=== PATIENT | female | born 1955 | race Caucasian/White ===

== ENCOUNTER → 2017-03-07 | Outpatient (CLI) | payer MEDICARE ==
[~2017-03-07] MED LIST: ADVAIR 250/501 EA INH; CIPRO500 MG PO; COUMADIN5 M2 PO; COUMADIN7.5 M1 PO; CRESTOR20 MG PO; ENALAPRIL20 MG PO; KCL PO; LASIX40 MG PO; MACROBID100 M1 PO; MOTRIN800 MG PO; NEXIUM40 MG PO; PREDNISONE10 MG PO; SYNTHROID,LEVO50 MCG PO; VENTOLIN 02.5 MG/3 M
== END ==
LOC: CT 09:37 → LAB 09:37 → CT 10:00
PROVIDERS: Radiology Diagnostic Radiology
DX: K76.0 Fatty (change of) liver, not elsewhere classified (principal); K57.30 Diverticulosis of large intestine without perforation or abscess without bleeding

== ENCOUNTER 2017-08-12 11:04 | Inpatient (IN) | payer MEDICARE ==
[~2017-08-12] VITALS: Ht 157.4 cm; Wt 120.0 kg
--- NOTE | ~2017-08-12 | PR ---
[place], [place] PROGRESS NOTE NAME: LOPEZ LUQUE UNIT #: [id number] ROOM: 407 DOCTOR: JESUSITA SANZ MD BIRTHDATE: [birth year] DOS: SUBJECTIVE: The patient is doing fine without any complaints. OBJECTIVE: VITAL SIGNS: Blood pressure is 159/72, pulse of 74, respirations 20, temperature 98.3. LUNGS: Clear. HEART: Regular. ABDOMEN: Obese, soft. EXTREMITIES: Without any edema. She is now able to ambulate from the bed to the hallway. DIAGNOSTIC STUDIES: MRI of the right knee showed complex tear of the posterior horn of the medial meniscus and degenerative changes. ASSESSMENT AND PLAN: 1. Acute pain of the knee with difficulty with ambulation. The patient's knee joint showed moderate knee effusion as well as acute tear of the posterior horn of the medial meniscus. This most likely is responsible for current problem. Dr. Trent has seen the patient and the patient will possibly receive a cortisone injection. 2. Adult failure to thrive. The patient to go back to home with visiting nurses and PT, OT, since she has not consented to a fdc placement. JESUSITA SANZ MD CM:JEFF [phone] JESUSITA SANZ MD 08/14/17 0923 interface
--- NOTE | ~2017-08-12 | WRIGHTHP ---
[place], [place] PATIENT HISTORY AND PHYSICAL EXAM NAME: LOPEZ LUQUE UNIT #: [id number] ROOM: 407 DOCTOR: JESUSITA SANZ MD BIRTHDATE: [birth year] DOS: HISTORY OF PRESENT ILLNESS: This patient states that she was walking up the steps, heard a pop in her right knee and she was unable to put any weight on her knee on ____, so she was brought to the emergency room where she was evaluated and was admitted. This morning, the patient continues to complain of right knee pain. She denies having any fever or chills. Does not have any chest pains or shortness of breath. Denies having any nausea and emesis. The patient has not had any falls or any other form of injury. PAST MEDICAL HISTORY: Significant for 1. History of DVT with long-term use of anticoagulants with lupus anticoagulant positivity. 2. Benign hypertension. 3. COPD with nicotine abuse. 5. Mixed hyperlipidemia. MEDICATIONS: Lasix 20 daily; enalapril 20 daily; levothyroxine 50 mcg daily; metformin 500 b.i.d.; omeprazole 20 daily; rosuvastatin 20 daily; warfarin 5 mg daily, Sunday, and Sunday, 8 mg rest of the days. SOCIAL HISTORY: Smoker of about 1 pack of cigarettes a day. Denies using any alcohol. Lives at home with her sister. She is mentally handicapped. PHYSICAL EXAMINATION: GENERAL: She is quite pleasant, morbidly obese. VITAL SIGNS: Graphic trend shows a pressure 142/70, pulse of 86, respirations 14. LUNGS: Diminished breath sounds. No wheezes, rales or rhonchi heard. HEART: Regular. ABDOMEN: Obese, soft, nontender. EXTREMITIES: Without any edema. Right knee, I did not notice any swelling or redness either anteriorly or in the popliteal area. We did try to get her out of bed as she was able to stand on her feet, but was unable to put much weight and walk. She was able to pivot with a lot of difficulties. ASSESSMENT AND PLAN: 1. Right knee pain, acute onset with difficulty ambulating. The patient will have an MRI of the right knee today along with a consultation with Dr. Trent. 2. Adult failure to thrive. PT/OT to be consulted and the patient may require short-term placement for a rehabilitation. 3. Benign hypertension, controlled. 4. Type 2 diabetes mellitus. Blood sugars to be checked twice daily. Continue metformin. [place], [place] PATIENT HISTORY AND PHYSICAL EXAM NAME: LOPEZ LUQUE UNIT #: [id number] ROOM: [facility] DOCTOR: JESUSITA SANZ MD BIRTHDATE: [birth year] JESUSITA SANZ MD CM:HISPHYS:PATIENT HISTORY AND PHYSICAL EXAMINATION [id number] JESUSITA SANZ MD 08/13/17 1217 interface
[2017-08-12 11:23] VITALS: BP 126/72
[2017-08-12 12:52] LABS: BASO % 0.2 % (0.0-1.0); HEMATOCRIT 33.1 % (37.0-47.0); HEMOGLOBIN 10.3 g/dl (12.0-16.0); LYMPH # 2.4 10*3/uL (1.3-4.4); LYMPH % 20.1 % (27.0-41.0); MEAN CELL VOLUME 89.2 fl (81.0-99.0); MEAN CORPUSCULAR HGB 27.8 pg (27.0-31.0); MEAN CORPUSCULAR HGB CONC 31.1 g/dl (33.0-37.0); MEAN PLATELET VOLUME 12.4 fl (9.6-12.3); MONO # 0.9 10*3/uL (0.1-1.0); MONO % 7.3 % (3.0-9.0); NEUT # 8.7 10*3/uL (2.3-7.9); NEUT % 71.4 % (47.0-73.0); PLATELET COUNT AUTOMATED 191 10*3/uL (130-400); RED BLOOD COUNT 3.71 10*6/uL (4.10-5.10); WHITE BLOOD COUNT 12.2 10*3/uL (4.8-10.8)
[2017-08-12 13:09] LABS: ALBUMIN 3.4 gm/dl (3.1-4.5); CREATININE 1.51 mg/dL (0.55-1.02); INTERNATIONAL NORM RATIO 2.7 (2.0-3.5); POTASSIUM 4.1 mmol/L (3.5-5.1); TOTAL PROTEIN 7.3 gm/dL (6.4-8.2)
--- NOTE | 2017-08-12 14:08 | NUR ---
THE PT IS RESTING ON THE BED. NO NEW C/O. FAMILY IS AT BEDSIDE
--- NOTE | 2017-08-12 15:03 | NUR ---
A NURSE HAS NOT BEEN ASSIGNED TO THE PATIENT ON THE FOURTH FLOOR YET
--- NOTE | 2017-08-12 15:09 | NUR ---
BOBY RETURNED THE CALL TO GET REPORT ON THE PATIENT
[2017-08-12 15:12] VITALS: BP 142/76
--- NOTE | 2017-08-12 15:28 | NUR ---
A 62, admitted to , under the services of JESUSITA Avelar MD with a diagnosis of INABILITY TO AMBULATE DUE TO RIGHT KNEE. Chief complaint is RIGHT KNEE PAIN FOR 1X MONTH. Patient arrived via wheel chair from ER. Monitor applied. Initial assessment completed. Vital signs taken and recorded. JESUSITA AVELAR MD notified of admission to the unit. Orders received. See assessment for past medical history, medications and allergies. Patient and/or family oriented to unit. [facility] visitation policy reviewed. Clothing/patient valuable form completed. BOBY ACOSTA
[2017-08-12] MEDS ORDERED: JANTOVEN4 M1 PO (15:40)
[2017-08-12] MEDS ORDERED: OMEPRAZOLE D/R20 MG PO (15:46)
[2017-08-12] MEDS ORDERED: METFORMIN500 MG PO (15:48)
[2017-08-12] MEDS ORDERED: JANTOVEN5 MG PO (15:52)
[2017-08-12 16:00] VITALS: BP 142/76
[2017-08-12 20:00] VITALS: BP 146/74; BP 149/66
[2017-08-12 21:16] LABS: BILIRUBIN NEGATIVE (NEGATIVE); BLOOD NEGATIVE (NEGATIVE); CLARITY SL CLOUDY (CLEAR); COLOR YELLOW (YELLOW); GLUCOSE NEGATIVE (NEGATIVE); KETONE NEGATIVE (NEGATIVE); LEUKO ESTERASE NEGATIVE (NEGATIVE); NITRITE NEGATIVE (NEGATIVE); SPECIFIC GRAVITY 1.015 (1.005-1.030); UROBILINOGEN 0.2 E.U./dl (0.2-1.0)
[2017-08-12 21:21] LABS: BACTERIA 2+; RBC 0-2 rbc/hpf (0-2)
--- NOTE | 2017-08-12 21:21 | NUR ---
PT REQUESTED MEDICATION FOR PAIN. PT RATES PAIN AT 5 OUT OF 10 AND IS LOCATED IN THE RIGHT KNEE. PAIN IS DESCRIBED DULL AND ACHING. NORCO GIVEN.
[2017-08-13] VITALS: BP 125/67
[2017-08-13 08:00] VITALS: BP 148/73
--- NOTE | 2017-08-13 08:30 | NUR ---
Advertising Analyst in to talk to patient. Patient states lives at HOME with HER SISTER. There are 10 steps in the home. Physician: DR HOLBROOK Pharmacy: [facility] health services: NONE REQUESTS [facility] NURSE AND PT UPON DC Patient's level of ADLs: MINIMAL ASSIST Patient has working utilities: YES DME: Follow-up physician's appointment after d/c: PREFERS TO MAKE HER OWN APPT Does patient want to access PORTAL?: Discharge plan HOME. SIMONE CARVER REFUSES SNF STAY
--- NOTE | 2017-08-13 11:11 | NUR ---
PT WOULD LIKE A WALKER. HAS NO PREFERANCE FOR SUPLLIER. WILL ASK DR SANZ FOR SCRIPT TOMORROW AM.
--- NOTE | 2017-08-13 11:23 | NUR ---
Physical therapy evaluation completed. RN and PT entered pt's room together. Patient sitting on BSC. Patient performed sit to stand with CGA. 3-4 steps to bed with CGA. Bed transfer with mod A of B LE's for sit to supine transfer. Max assist x 2 scooting upward in bed. Patient declined to walk at this time as well as to transfer into the chair. Patient requested to stay in bed as she was waiting to "get washed up." Patient is reporting less Right posterior knee pain. Patient is having medial hamstring muscle tenderness to palpation and mild discomfort with hamstring muscle contractions. Patient states she felt the pop in the knee that brought her to the ER in the medial hamstring muscle area. 3/10 R knee pain. No DORI in her home per pt. Bariatric walker needed. Patient agreed to attempt walking in subsequent phsyical therapy sessions. Patient educated on the importance of increasing mobility and safely changing positions often. Patient performed supine quad sets, heel slides and ankle pumps without increased symptoms. Patient to perform hourly. Physical therapy to continue with bed mobility, transfers, gait, ther ex/activity, safety, education. Patient would like to return home. Patient would benefit from home health physical therapy. Low complexity PT Bishop d/t time with chart reveiw and with patient. Thank you for this referral, [employer], PT
[2017-08-13 12:00] VITALS: BP 144/70
--- NOTE | 2017-08-13 14:35 | NUR ---
Received order for home health nursing and PT, patient requested OV. Faxed order and clincals to [facility] for possible D/C tomorrow.
[2017-08-13 16:00] VITALS: BP 138/76
[2017-08-13 20:00] VITALS: BP 146/73
--- NOTE | 2017-08-13 20:29 | NUR ---
PATIENT RESTING IN BED WITH NO NEEDS MADE AT THIS TIME. ASSISTED TO BEDSIDE COMMODE AND BACK TO BED WITH NO S/S OF DISTRESS. IV INFUSING WITHOUT DIFFICULTY. BED IN LOWEST POSITION, CALL LIGHT IN REACH
[2017-08-14] VITALS: BP 159/89
--- NOTE | 2017-08-14 01:26 | NUR ---
PATIENT RESTING IN BED WITH NO S/S OF DISTRESS. RESPS EASY AND REGULAR. BED IN LOWEST POSITION, CALL LIGHT IN REACH
--- NOTE | 2017-08-14 01:44 | NUR ---
24 HR chart check completed.
--- NOTE | 2017-08-14 05:06 | NUR ---
BG 107
[2017-08-14 08:00] VITALS: BP 159/72
--- NOTE | 2017-08-14 09:08 | NUR ---
SCRIPT FOR WALKER OBTAINED. ORDERED THROUGH [employer]. WILL BE DELIVERED TO PT ROOM TODAY. AWARE OF DC TODAY. SISTER IN ROOM. WALKER AND HOME HEALTH EXPLAINED TO SISTER NAD PT. DENIES FURTHER NEEDS. NURSE AWARE.
--- NOTE | 2017-08-14 11:23 | NUR ---
PHYSICAL THERAPY Mary seen this AM 1:1 and having no complaints for my, Pt sitting independent at bedside. Transfer sit/stand MIN A X 1, standing balance MIN A X 1. Then gait 20' X 1, MOD RESEARCH PROJECT MANAGER X 1, verbal cueing for gait safety, turns and with no LOB this visit, Pt has IV Pole and back sitting on the side of her bed independent, call light and phone. ALFREDO OTT [employer] M[employer] HAND.
--- NOTE | 2017-08-14 12:19 | NUR ---
[facility] Discharge instructions reviewed with patient/family. Patient receptive and verbalizes understanding. Follow-up care arranged. Written instructions given to patient/family. DERRELL TORO
--- NOTE | 2017-08-15 06:26 | NUR ---
PHYSICAL THERAPY CO-SIGN I approve of the Phyical Therapy notes written above. ALYCE CHAWLA PT
== END 2017-08-14 12:21 | disposition home health service (06) | DRG 563 ==
LOC: ED 11:04 → EDHOLD 14:46 → 4E 14:46
PROVIDERS: Physician Assistant; ADMIT Internal Medicine
DX: S83.241A Other tear of medial meniscus, current injury, right knee, initial encounter (principal); E11.9 Type 2 diabetes mellitus without complications; E78.2 Mixed hyperlipidemia; I10 Essential (primary) hypertension; M17.11 Unilateral primary osteoarthritis, right knee; F17.210 Nicotine dependence, cigarettes, uncomplicated; M25.461 Effusion, right knee; J44.9 Chronic obstructive pulmonary disease, unspecified; R62.7 Adult failure to thrive; Z86.718 Personal history of other venous thrombosis and embolism; Z79.01 Long term (current) use of anticoagulants; Z88.0 Allergy status to penicillin; Z98.51 Tubal ligation status; Z82.49 Family history of ischemic heart disease and other diseases of the circulatory system; Z83.3 Family history of diabetes mellitus; Z79.899 Other long term (current) drug therapy; X58.XXXA Exposure to other specified factors, initial encounter; Y93.01 Activity, walking, marching and hiking; Y92.098 Other place in other non-institutional residence as the place of occurrence of the external cause; Y99.8 Other external cause status

== ENCOUNTER 2018-03-01 07:23 | Emergency (ER) | payer MEDICARE ==
[~2018-03-01] VITALS: Ht 152.4 cm; Wt 113.4 kg
[~2018-03-01 07:23] MED LIST changes: +JANTOVEN4 M1 PO; +JANTOVEN5 MG PO; +METFORMIN HCL850 MG PO; +OMEPRAZOLE D/R20 MG PO
[2018-03-01] MEDS ORDERED: NORCO 5-325 TA1 EACH PO (09:05)
== END 2018-03-01 09:15 | disposition home or self-care (01) ==
LOC: ED 07:23
DX: S82.831A Other fracture of upper and lower end of right fibula, initial encounter for closed fracture (principal); R50.9 Fever, unspecified; R11.0 Nausea; Z88.0 Allergy status to penicillin; Z79.899 Other long term (current) drug therapy; Z79.02 Long term (current) use of antithrombotics/antiplatelets; W06.XXXA Fall from bed, initial encounter; Y93.89 Activity, other specified; Y92.89 Other specified places as the place of occurrence of the external cause; Y99.8 Other external cause status

== ENCOUNTER 2018-03-03 12:06 | Inpatient (IN) | payer MEDICARE ==
[2018-03-03] VITALS (7 sets, daily range): BP systolic 120–147; BP diastolic 49–84
[~2018-03-03] VITALS: Ht 160 cm; Wt 113.4 kg
--- NOTE | ~2018-03-03 | PR ---
[place], [place] PROGRESS NOTE NAME: LOPEZ LUQUE UNIT #: [id number] ROOM: [facility] DOCTOR: JESUSITA SANZ MD BIRTHDATE: [birth year] DOS: 03/07/2018 SUBJECTIVE: The patient is resting comfortably, does not have any complaints. OBJECTIVE: VITAL SIGNS: Blood pressure is 104/56, pulse of 92, respirations 20, temperature 98.5. LUNGS: Clear. HEART: Regular. ABDOMEN: Obese. EXTREMITIES: Without any edema. Intake, output for the last 24 hours, negative balance by 480 mL. LABORATORY DATA: No labs available. ASSESSMENT AND PLAN: 1. Acute kidney injury from sepsis, which is improving. 2. Acute pyelonephritis with urosepsis, on IV antibiotics. Repeat blood cultures will be drawn today. The patient's white cell count is slowly coming down and if blood cultures are negative today, the plan is to [facility] on p.o. antibiotics. JESUSITA SANZ MD CM:PNTRANS [phone] JESUSITA SANZ MD 03/07/18 0917 interface
--- NOTE | ~2018-03-03 | PR ---
[place], [place] PROGRESS NOTE NAME: LOPEZ LUQUE UNIT #: [id number] ROOM: [facility] DOCTOR: JESUSITA SANZ MD BIRTHDATE: [birth year] DOS: 03/06/2018 SUBJECTIVE: The patient is about the same, does not have any new complaints. OBJECTIVE: VITAL SIGNS: Graphic trend shows pressure 150/70, pulse of 92, respirations 22, temperature 98.1. LUNGS: Diminished breath sounds. HEART: Regular. ABDOMEN: Obese, soft. EXTREMITIES: Without any edema. LABORATORY DATA: White blood cell count is down to 11.9, hemoglobin 10.0, hematocrit 33.0, platelets 171. Protime 55.0 with an INR of 5.0. Glucose 99, BUN 58, creatinine 4.9. Sodium 138, potassium 5.0, chloride 109, bicarbonate 21. Blood culture shows gram-negative bacilli, most likely Escherichia coli. ASSESSMENT AND PLAN: 1. Urosepsis with acute pyelonephritis. The patient is on IV antibiotics, improving clinically. 2. Acute kidney injury from acute tubular necrosis, this is also definitely improving. We will continue slow IV hydration, decrease of fluid rate. 3. Hypoglycemia. Blood sugars are still in the low 100s. No oral anti-diabetics have been started. 4. Recent fall with fibular fracture and adult failure to thrive. The patient will go to a fci when more stable. JESUSITA SANZ MD CM:PNTRANS 0 4 JESUSITA SANZ MD 03/07/18921 interface
--- NOTE | ~2018-03-03 | DS ---
[place], [place] DISCHARGE SUMMARY [id number] UN[facility] #: [id number] ROOM: 511 DOCTOR: JEFFREY CAMARILLO MD BIRTHDATE: [birth year] DOS: 03/07/2018 DISCHARGE DIAGNOSES: 1. The patient with adult failure to thrive. 2. Deep venous thrombosis involving left peroneal and left tibial veins. The patient decided against inferior vena cava filter or surgical intervention in the past. 3. Greater than 70% right carotid artery stenosis. The patient decided against further treatment. 4. Generalized anxiety disorder. 5. Chronic atrial fibrillation with controlled heart rates. The patient's Coumadin was stopped prior to this admission. 6. Benign essential hypertension. 7. Parkinson's disease with advanced physical disability. 8. Major depression, recurrent. 9. Type 2 diabetes mellitus. 10. Mixed hyperlipidemia. 11. Urinary incontinence. 12. Urine retention. HOSPITAL COURSE: The patient admitted with decreased appetite, generalized weakness, adult failure to thrive and inability to get up from floor where he was sleeping. The patient was unable to get up in the morning because of severe weakness. The patient was admitted for placement to fci for rehabilitation. The patient was kept on physical therapy during his stay at the hospital. The patient was found to be somewhat dehydrated and was given normal saline, which improved his acute kidney failure related to dehydration to baseline. The patient is feeling somewhat better. Parkinson's disease with advanced disability, treated with Sinemet. For poor appetite, the patient was given Periactin for appetite stimulation. Type 2 diabetes mellitus. Blood sugars were monitored and treated and metformin stopped because of his kidney function. Chronic kidney disease with acute kidney failure related to dehydration, improved with hydration with normal saline. Mixed hyperlipidemia, treated with lovastatin. Benign essential hypertension, treated and controlled. Chronic atrial fibrillation with controlled heart rates. The patient's Coumadin was apparently stopped by some physician prior to his admission, so he was kept off the medication. DISCHARGE MANAGEMENT: Cyproheptadine 8 mg 3 times a day before meals, glyburide 1.25 mg daily, no concentrated sweet diet, paroxetine which is Paxil 30 mg a day, finasteride 5 mg a day, Sinemet 25/250 mg q.i.d., omeprazole 40 mg a day, [place], [place] DISCHARGE SUMMARY NAME: LOPEZ LUQUE UNIT #: [id number] ROOM: 511 DOCTOR: JEFFREY CAMARILLO MD BIRTHDATE: [birth year] metoprolol 25 mg b.i.d., lisinopril 5 mg at bedtime, Coreg 3.125 mg b.i.d., Florinef 0.1 mg b.i.d. JEFFREY CAMARILLO MD CM:CHAVA [phone] JEFFREY CAMARILLO MD 03/07/18 1819 interface
--- NOTE | ~2018-03-03 | PR ---
[place], [place] PROGRESS NOTE NAME: LPOEZ LUQUE UNIT #: [id number] ROOM: [facility] DOCTOR: JESUSITA SANZ MD BIRTHDATE: [birth year] CM:PNTAYLOR 0 4 JESUSITA SANZ MD 03/07/18 0919 interface
--- NOTE | ~2018-03-03 | PR ---
[place], [place] PROGRESS NOTE NAME: LOPEZ LUQUE UNIT #: [id number] ROOM: [facility] DOCTOR: JESUSITA SANZ MD BIRTHDATE: [birth year] DOS: 03/05/2018 SUBJECTIVE: The patient looks better than yesterday. Does not have any new complaints. OBJECTIVE: VITAL SIGNS: Graphic trend shows pressure of 116/62, pulse of 94, respirations 24, temperature 99.2, T-max of 100.4. LUNGS: Clear. HEART: Regular. ABDOMEN: Obese. EXTREMITIES: Without any edema. LABORATORY DATA: Urine culture shows E. coli. Blood culture, Gram-negative, most likely E. coli. White cell count is 12.7, hemoglobin 9.2, hematocrit 29.2, platelet 141. BMP: Glucose 152, BUN 54, creatinine 5.36, sodium 135, potassium 4.5, chloride 103. MRSA of the nares was negative. ASSESSMENT AND PLAN: 1. Acute renal failure, possibly from a combination ATN and sepsis. Kidney functions are not improving very well. Creatinine still in the 5. We will continue IV fluids. 2. Urosepsis with acute pyelonephritis. Continue IV antibiotics. Fevers are coming down. White cell count is coming down. 3. Adult failure to thrive. PT/OT to start ambulating her. Appreciate Dr. Trent's input. The patient to go to a rehab when stable medically. 4. Type 2 diabetes mellitus. Blood sugars still on the low side even on the D10 that she is on. JESUSITA SANZ MD CM:PNTRANS [phone] JESUSITA SANZ MD 03/07/18 0918 interface
--- NOTE | ~2018-03-03 | WRIGHTHP ---
[place], [place] PATIENT HISTORY AND PHYSICAL EXAM NAME: LOPEZ LUQUE UNIT #: [id number] ROOM: [facility] DOCTOR: JESUSITA SANZ MD BIRTHDATE: [birth year] DOS: 03/03/2018 HISTORY OF PRESENT ILLNESS: This patient is very well known to us 62-year-old was brought from home after being found unresponsive at home. The family members tried to wake her up. They thought that she was just sleeping, but finally realized there was something wrong, so called the EMS. They checked the blood sugar and was 26, for which she was brought to the Emergency Room. She was initially not responsive, but after an IV was started and the blood sugar improved, she was starting to respond. She had been to the hospital 3 days prior to this admission after a fall at home from bed and was diagnosed with a fibular fracture and she was given a knee immobilizer, but this was too long and she was unable to wear it because of extreme tightness in her leg. She denies having any chest pains or palpitations, not have any abdominal pain, nausea, any emesis. Does not have any fever or chills. Does not complain of any urinary symptoms. PAST MEDICAL HISTORY: Significant for; 1. Type 2 diabetes mellitus. 2. Benign hypertension. 3. COPD with continued nicotine abuse. 4. Mixed hyperlipidemia. 5. Lupus anticoagulant positive with history of DVT, on long-term use of anticoagulants. MEDICATIONS: Lasix, enalapril, metformin, levothyroxine, omeprazole, Crestor, warfarin. Her last kidney function in January was absolutely within normal limits. PHYSICAL EXAMINATION: GENERAL: She is awake and alert. Face looks puffy. VITAL SIGNS: Pressure is 116/62, pulse of 94, respirations 24, temperature 99.2 with a T-max of 100.6. LUNGS: Diminished breath sounds. Scattered wheezes heard bilaterally. HEART: Regular. ABDOMEN: Obese. EXTREMITIES: Without any edema. Urine culture is positive. Identification is not available. Blood cultures positive. CT of the abdomen and pelvis shows pyelonephritis. ASSESSMENT AND PLAN: 1. Acute pyelonephritis with urosepsis. The patient is placed on intravenous antibiotics. 2. Hypoglycemia, severe with history of type 2 diabetes mellitus. Patient's blood sugars had not been controlled in the past. She was advised to discontinue the metformin a few days ago because of continued diarrhea and she continued to remain on it. The acute renal failure could be caused by the metformin urosepsis from acute tubular necrosis. 3. Acute kidney injury. The patient had normal kidney functions just 2 months [place], [place] PATIENT HISTORY AND PHYSICAL EXAM NAME: LOPEZ LUQUE UNIT #: [id number] ROOM: [facility] DOCTOR: JESUSITA SANZ MD BIRTHDATE: [birth year] ago, could be from the pyelonephritis and urosepsis as well as acute tubular necrosis. Again, intravenous fluids have been ordered and continued. 4. Fibular fracture with adult failure to thrive. PT/OT will be consulted. Social service also has been consulted for possibility of placement. JESUSITA SANZ MD CM:HISPHYS:PATIENT HISTORY AND PHYSICAL EXAMINATION 9 [phone] JESUSITA SANZ MD 03/05/18 0964 interface
[~2018-03-03 12:06] MED LIST changes: +NORCO 5-325 TA1 EACH PO
[2018-03-03 12:36] LABS: HEMATOCRIT 37.3 % (37.0-47.0); HEMOGLOBIN 11.5 g/dl (12.0-16.0); MEAN CELL VOLUME 88.8 fl (81.0-99.0); MEAN CORPUSCULAR HGB 27.4 pg (27.0-31.0); MEAN CORPUSCULAR HGB CONC 30.8 g/dl (33.0-37.0); MEAN PLATELET VOLUME 12.6 fl (9.6-12.3); PLATELET COUNT AUTOMATED 147 10*3/uL (130-400); RED CELL DISTRI WIDTH 16.5 % (0-14.5)
[2018-03-03 12:46] LABS: ACT PARTIAL THROMBO TIME 46.3 SECONDS (20.8-31.5); INTERNATIONAL NORM RATIO 2.7 (2.0-3.5)
[2018-03-03 12:53] LABS: ALBUMIN 2.5 gm/dl (3.1-4.5); ATYPICAL LYMPHS 1 % (0-0); CREATININE 5.96 mg/dL (0.55-1.02); POTASSIUM 4.8 mmol/L (3.5-5.1); TOTAL CELLS COUNTED 100 #CELLS; TOTAL PROTEIN 7.6 gm/dL (6.4-8.2)
[2018-03-03 12:54] LABS: BURR CELLS FEW; PLATELET SUFFICIENCY NORMAL (NORMAL)
[2018-03-03 12:57] LABS: BILIRUBIN NEGATIVE (NEGATIVE); BLOOD 3+ (NEGATIVE); CLARITY TURBID (CLEAR); COLOR YELLOW (YELLOW); GLUCOSE NEGATIVE (NEGATIVE); KETONE NEGATIVE (NEGATIVE)
[2018-03-03 12:58] LABS: LEUKO ESTERASE 2+ (NEGATIVE); NITRITE NEGATIVE (NEGATIVE); UROBILINOGEN 0.2 E.U./dl (0.2-1.0)
[2018-03-03 13:01] LABS: TROPONIN I 0.053 ng/ml (<0.045)
[2018-03-03 13:11] LABS: ABG HCO3 18.4 mmol/l (22-26); ABG O2 SATURATION 96.5 % (95-97); ARTERIAL BLOOD GAS PCO2 36.1 mmHg (35-45); ARTERIAL BLOOD GAS PH 7.325 (7.35-7.45)
[2018-03-03 13:12] LABS: ABG BASE EXCESS -6.5 mmol/L (-2.0-2.0)
[2018-03-03 13:14] LABS: BACTERIA 4+; WBC TNTC wbc/hpf (0-5)
[2018-03-03] MEDS ORDERED: GLIPIZIDE10 M2 PO (14:07)
[2018-03-03] MEDS ORDERED: K-TAB10 MEQ PO (14:08)
[2018-03-04 04:23] VITALS: BP 105/63
[2018-03-04 06:05] LABS: HEMATOCRIT 31.8 % (37.0-47.0); MEAN CELL VOLUME 87.4 fl (81.0-99.0); MEAN CORPUSCULAR HGB 27.5 pg (27.0-31.0); MEAN CORPUSCULAR HGB CONC 31.4 g/dl (33.0-37.0); PLATELET COUNT AUTOMATED 135 10*3/uL (130-400); RED BLOOD COUNT 3.64 10*6/uL (4.10-5.10); RED CELL DISTRI WIDTH 16.1 % (0-14.5); WHITE BLOOD COUNT 12.1 10*3/uL (4.8-10.8)
[2018-03-04 06:24] LABS: ALBUMIN 2.1 gm/dl (3.1-4.5); CREATININE 5.86 mg/dL (0.55-1.02); POTASSIUM 4.3 mmol/L (3.5-5.1); TOTAL PROTEIN 6.8 gm/dL (6.4-8.2)
[2018-03-04 07:09] LABS: PLATELET SUFFICIENCY NORMAL (NORMAL); TOTAL CELLS COUNTED 100 #CELLS
[2018-03-04 08:00] VITALS: BP 118/61
[2018-03-04 10:13] LABS: POTASSIUM 4.4 mmol/L (3.5-5.1)
[2018-03-04 10:38] LABS: CREATININE 5.92 mg/dL (0.55-1.02)
[2018-03-04 12:00] VITALS: BP 128/77
[2018-03-04 16:00] VITALS: BP 142/69
[2018-03-04 20:00] VITALS: BP 130/71
[2018-03-05] VITALS (7 sets, daily range): BP systolic 116–142; BP diastolic 51–80
[2018-03-05 06:03] LABS: BASO % 0.2 % (0.0-1.0); EOS # 0.1 10*3/uL (0.0-0.4); EOS % 0.9 % (1.0-4.0); HEMATOCRIT 29.2 % (37.0-47.0); HEMOGLOBIN 9.2 g/dl (12.0-16.0); LYMPH # 1.1 10*3/uL (1.3-4.4); LYMPH % 8.6 % (27.0-41.0); MEAN CELL VOLUME 85.9 fl (81.0-99.0); MEAN CORPUSCULAR HGB 27.1 pg (27.0-31.0); MEAN CORPUSCULAR HGB CONC 31.5 g/dl (33.0-37.0); MEAN PLATELET VOLUME 12.5 fl (9.6-12.3); MONO # 0.6 10*3/uL (0.1-1.0); NEUT # 10.8 10*3/uL (2.3-7.9); NEUT % 84.4 % (47.0-73.0); PLATELET COUNT AUTOMATED 141 10*3/uL (130-400); RED CELL DISTRI WIDTH 16.3 % (0-14.5); WHITE BLOOD COUNT 12.7 10*3/uL (4.8-10.8)
[2018-03-05 08:11] LABS: CREATININE 5.36 mg/dL (0.55-1.02); POTASSIUM 4.5 mmol/L (3.5-5.1)
[2018-03-06] VITALS: BP 153/78
[2018-03-06 04:00] VITALS: BP 150/70
[2018-03-06 06:06] LABS: CREATININE 4.59 mg/dL (0.55-1.02)
[2018-03-06 06:34] LABS: BASO % 0.3 % (0.0-1.0); EOS # 0.1 10*3/uL (0.0-0.4); EOS % 1.1 % (1.0-4.0); LYMPH # 1.4 10*3/uL (1.3-4.4); LYMPH % 11.4 % (27.0-41.0); MEAN CORPUSCULAR HGB 27.1 pg (27.0-31.0); MEAN CORPUSCULAR HGB CONC 30.3 g/dl (33.0-37.0); MEAN PLATELET VOLUME 12.6 fl (9.6-12.3); MONO % 8.4 % (3.0-9.0); NEUT # 9.2 10*3/uL (2.3-7.9); NEUT % 77.1 % (47.0-73.0); PLATELET COUNT AUTOMATED 171 10*3/uL (130-400); RED BLOOD COUNT 3.69 10*6/uL (4.10-5.10); RED CELL DISTRI WIDTH 16.9 % (0-14.5); WHITE BLOOD COUNT 11.9 10*3/uL (4.8-10.8)
[2018-03-06 06:47] LABS: MEAN CELL VOLUME 89.4 fl (81.0-99.0)
[2018-03-06 08:00] VITALS: BP 134/73
[2018-03-06 12:00] VITALS: BP 130/70
[2018-03-06 16:00] VITALS: BP 134/70
[2018-03-06 20:00] VITALS: BP 116/69
[2018-03-07] VITALS: BP 98/56
[2018-03-07 04:00] VITALS: BP 105/66
[2018-03-07] MEDS ORDERED: CEFUROXIME AXE250 MG PO (07:35)
[2018-03-07 07:39] LABS: CREATININE 3.41 mg/dL (0.55-1.02)
[2018-03-07 07:40] LABS: INTERNATIONAL NORM RATIO 7.3 (2.0-3.5)
[2018-03-07 08:00] VITALS: BP 121/69
[2018-03-07 12:00] VITALS: BP 141/75
[2018-03-07 16:00] VITALS: BP 152/97
[2018-03-07 20:00] VITALS: BP 157/87
[2018-03-08] VITALS: BP 153/76
[2018-03-08 08:00] VITALS: BP 162/98
[2018-03-08 09:42] LABS: INTERNATIONAL NORM RATIO 1.3 (2.0-3.5)
[2018-03-08] MEDS ORDERED: LOPRESSOR25 MG PO (10:04)
== END 2018-03-08 11:00 | disposition other institution (70) | DRG 871 ==
LOC: ED 12:06 → EDHOLD 13:17 → ICCU 13:17 → 5E 13:17 → ICCU 13:34 → 5E 03-07 12:36
PROVIDERS: Emergency Medicine; Internal Medicine
PROC: 02H633Z Insertion of Infusion Device into Right Atrium, Percutaneous Approach (ICD-10-PCS; principal; 2018-03-03)
DX: A41.9 Sepsis, unspecified organism (principal); N17.0 Acute kidney failure with tubular necrosis; D68.62 Lupus anticoagulant syndrome; E11.649 Type 2 diabetes mellitus with hypoglycemia without coma; G20 Parkinson's disease; F33.9 Major depressive disorder, recurrent, unspecified; I48.2 Chronic atrial fibrillation; E86.0 Dehydration; N10 Acute pyelonephritis; F41.1 Generalized anxiety disorder; I12.9 Hypertensive chronic kidney disease with stage 1 through stage 4 chronic kidney disease, or unspecified chronic kidney disease; N18.9 Chronic kidney disease, unspecified; E78.2 Mixed hyperlipidemia; J44.9 Chronic obstructive pulmonary disease, unspecified; R62.7 Adult failure to thrive; R26.2 Difficulty in walking, not elsewhere classified; R65.20 Severe sepsis without septic shock; Z88.0 Allergy status to penicillin; Z79.84 Long term (current) use of oral hypoglycemic drugs; Z79.01 Long term (current) use of anticoagulants; Z79.899 Other long term (current) drug therapy; Z98.51 Tubal ligation status; Z95.5 Presence of coronary angioplasty implant and graft; Z87.81 Personal history of (healed) traumatic fracture; Z86.718 Personal history of other venous thrombosis and embolism; Z83.3 Family history of diabetes mellitus; Z82.49 Family history of ischemic heart disease and other diseases of the circulatory system

== ENCOUNTER 2020-06-25 20:27 | Inpatient (IN) | payer OTHER ==
[~2020-06-25] VITALS: Ht 154.9 cm; Wt 108.5 kg
[~2020-06-25 20:27] MED LIST changes: +CEFUROXIME AXE250 MG PO; +GLIPIZIDE10 M2 PO; +K-TAB10 MEQ PO; +LOPRESSOR25 MG PO
[2020-06-25 20:30] VITALS: BP 154/84
[2020-06-25 21:04] LABS: HEMATOCRIT 40.3 % (37.0-47.0); MEAN CELL VOLUME 86.9 fl (81.0-99.0); MEAN CORPUSCULAR HGB 25.6 pg (27.0-31.0); MEAN CORPUSCULAR HGB CONC 29.5 g/dl (33.0-37.0); MEAN PLATELET VOLUME 12.6 fl (9.6-12.3); PLATELET COUNT AUTOMATED 189 10*3/uL (130-400); RED BLOOD COUNT 4.64 10*6/uL (4.10-5.10); RED CELL DISTRI WIDTH 15.9 % (0-14.5); WHITE BLOOD COUNT 16.7 10*3/uL (4.8-10.8)
[2020-06-25 21:19] LABS: ALBUMIN 3.4 gm/dl (3.1-4.5); CREATININE 1.77 mg/dL (0.55-1.02); POTASSIUM 3.7 mmol/L (3.5-5.1); TOTAL PROTEIN 8.1 gm/dL (6.4-8.2)
--- NOTE | 2020-06-25 21:27 | NUR ---
Family updated on pt status and ok for pt family to come back per .
--- NOTE | 2020-06-25 21:34 | NUR ---
Pt has some periods of confusion noted.Pt states she is unsure of date or year and per pt this is her normal at this time.Per sister pt has mrdd.
[2020-06-25 21:43] VITALS: BP 158/86
[2020-06-25 21:43] LABS: PLATELET SUFFICIENCY NORMAL (NORMAL); TOTAL CELLS COUNTED 100 #CELLS
--- NOTE | 2020-06-25 21:59 | NUR ---
Pt nausea is better at this time and pt is drinking water at this time.
--- NOTE | 2020-06-25 22:00 | NUR ---
Sister Quita at bedside at this time.
--- NOTE | 2020-06-25 22:14 | NUR ---
Sister in at bedside.Sister and pt stated they did not want wound pictures taken.Per pt she has had large skin tag since .Area slightly open at this time with no drainage.Rash also noted in groin at this time and jess care given after pt voided.Pt voided small amount of yellow cloudy urine at this time.
[2020-06-25 22:20] LABS: BILIRUBIN Negative (Negative); BLOOD 3+ (Negative); CLARITY Cloudy (Clear); COLOR Yellow (Yellow); GLUCOSE Negative (Negative); KETONE Trace (Negative); LEUKO ESTERASE 3+ (Negative); NITRITE Negative (Negative); SPECIFIC GRAVITY 1.015 (1.001-1.030)
[2020-06-25 22:29] LABS: EPITHELIAL CELLS 31-40
[2020-06-25 22:30] LABS: BACTERIA 2+; RBC 21-30 rbc/hpf (0-2); WBC 41-50 wbc/hpf (0-5)
[2020-06-25 23:15] VITALS: BP 148/82
--- NOTE | 2020-06-25 23:28 | NUR ---
Pt turned and repostioned in bed at this time.Rash still present on groin and also noted on left upp thigh and lateral area.Pt is dry at this time and sister still at bedside at this time.
--- NOTE | 2020-06-25 23:29 | NUR ---
Trace edema noted to b/l lower legs at this time.
[2020-06-25 23:51] VITALS: BP 150/81
[2020-06-26] VITALS: BP 163/78
--- NOTE | 2020-06-26 | NUR ---
Time: 0000 A 65 year old F admitted to under services of JESUSITA AVELAR MD. Pt. arrived via stretcher from ER. Chief complaint: NAUSEA & VOMITING AT HOME THAT STARTED AROUND 5 P.M.. MAXWELL QUEZADA
[2020-06-26 05:59] LABS: BASO % 0.2 % (0.0-1.0); EOS % 0.1 % (1.0-4.0); HEMATOCRIT 35.8 % (37.0-47.0); LYMPH # 1.1 10*3/uL (1.3-4.4); LYMPH % 9.9 % (27.0-41.0); MEAN CELL VOLUME 87.7 fl (81.0-99.0); MEAN CORPUSCULAR HGB 26.5 pg (27.0-31.0); MEAN CORPUSCULAR HGB CONC 30.2 g/dl (33.0-37.0); MEAN PLATELET VOLUME 12.7 fl (9.6-12.3); MONO # 0.6 10*3/uL (0.1-1.0); NEUT # 9.5 10*3/uL (2.3-7.9); NEUT % 84.5 % (47.0-73.0); PLATELET COUNT AUTOMATED 173 10*3/uL (130-400); RED BLOOD COUNT 4.08 10*6/uL (4.10-5.10); WHITE BLOOD COUNT 11.2 10*3/uL (4.8-10.8)
[2020-06-26 06:17] LABS: CREATININE 1.97 mg/dL (0.55-1.02); POTASSIUM 3.7 mmol/L (3.5-5.1)
--- NOTE | 2020-06-26 06:21 | NUR ---
CALLED DR. SANZ EARLIER IN SHIFT FOR ADMISSION ORDERS. UNABLE TO VERIFY HOME MEDICATIONS DUE TO PATIENT NOT KNOWING WHAT MEDICATIONS SHE TAKES. WILL PASS ON TO NEXT SHIFT TO CALL [facility].
[2020-06-26 06:22] LABS: INTERNATIONAL NORM RATIO 2.1 (2.0-3.5)
[2020-06-26 08:00] VITALS: BP 151/86
[2020-06-26] MEDS ORDERED: LEVOTHYROXINE75 MCG PO (09:44)
[2020-06-26] MEDS ORDERED: BUSPIRONE HCL10 MG PO (09:45)
--- NOTE | 2020-06-26 09:45 | NUR ---
CALLED [facility] TO UPDATE MEDICATION LIST. MEDICATION LIST UPDATED, DR SANZ IS AWARE.
[2020-06-26] MEDS ORDERED: FUROSEMIDE20 M1 PO (09:46)
[2020-06-26] MEDS ORDERED: PAROXETINE HCL30 MG PO (09:46)
[2020-06-26] MEDS ORDERED: JANTOVEN6 M1 PO (09:46)
[2020-06-26] MEDS ORDERED: ATORVASTATIN CA40 M1 PO (09:47)
--- NOTE | 2020-06-26 09:55 | NUR ---
Morning Babysitter in to talk to patient in her Room Patient states that she lives at home with her Sister Leesa and Plans to return home at discharge. There are 5 steps in the home. Physician: Dr. Eliane Saucedo Pharmacy: [facility] services: None at this time Patient's level of ADLs: Independent Patient has working utilities: Yes DME: Pt. uses a Walker to Ambulate Follow-up physician's appointment after d/c: Pt. prefers to make her own follow up appointments at discharge. Does patient want to access PORTAL?: Not Interested Discharge plan. Pt. states that she wants to return home to live with her Sister Leesa, that she is independent in her own care when feeling well and requires no assistance. Pt. declines SNF or Home Health at this time. TRAN AMBRIZ LPN, Morning Babysitter
[2020-06-26 12:00] VITALS: BP 157/93
[2020-06-26 16:00] VITALS: BP 150/94
[2020-06-26 20:00] VITALS: BP 144/69
--- NOTE | 2020-06-26 20:20 | NUR ---
RESTING IN BED WITH HOB SLIGHTLY ELEVATED. PLACED 02 BACK IN PT'S NOSE. IV FLUIDS INFUSING INTO LEFT ANTECUBITAL WITHOUT DIFFICULTY; SITE ASYMPTOMATIC. NO DISTRESS NOTED; CALL LIGHT WITHIN REACH. BED ALARM ON.
[2020-06-27] VITALS: BP 157/70
--- NOTE | 2020-06-27 06:00 | NUR ---
TOOK MEDICATION WITHOUT DIFFICULTY. DR. SANZ HERE TO SEE PT. 02 INTACT. CALL LIGHT WITHIN REACH. BED ALARM ON.
--- NOTE | 2020-06-27 06:15 | NUR ---
IV FLUIDS DISCONTINUED PER M.D. ORDERS.
--- NOTE | 2020-06-27 07:25 | NUR ---
PODIATRY CONSULTED TO TRIM PATIENT'S TOENAILS. SPOKE TO DR. FITZPATRICK.
[2020-06-27 08:00] VITALS: BP 151/66
[2020-06-27 12:00] VITALS: BP 138/78
--- NOTE | 2020-06-27 13:30 | NUR ---
ALERT TO PERSON AND PLACE. PLACED UP INTO CHAIR WITH ASSISTANCE TIMES ONE. INCONTINENT OF URINE. TEMP 99
[2020-06-27 16:00] VITALS: BP 144/91
--- NOTE | 2020-06-27 20:00 | NUR ---
PT SEEN AND ASSESSED. PT DENIES ANY C/O AT THIS TIME.
[2020-06-28] VITALS: BP 163/86
--- NOTE | 2020-06-28 02:15 | NUR ---
24 HR chart check completed.
[2020-06-28 06:20] LABS: BASO % 0.3 % (0.0-1.0); EOS # 0.2 10*3/uL (0.0-0.4); EOS % 2.2 % (1.0-4.0); HEMATOCRIT 33.7 % (37.0-47.0); LYMPH # 1.5 10*3/uL (1.3-4.4); LYMPH % 21.9 % (27.0-41.0); MEAN CORPUSCULAR HGB 25.8 pg (27.0-31.0); MEAN CORPUSCULAR HGB CONC 29.4 g/dl (33.0-37.0); MEAN PLATELET VOLUME 12.9 fl (9.6-12.3); MONO # 0.6 10*3/uL (0.1-1.0); MONO % 8.6 % (3.0-9.0); NEUT # 4.5 10*3/uL (2.3-7.9); NEUT % 66.9 % (47.0-73.0); PLATELET COUNT AUTOMATED 158 10*3/uL (130-400); RED BLOOD COUNT 3.83 10*6/uL (4.10-5.10); RED CELL DISTRI WIDTH 16.3 % (0-14.5); WHITE BLOOD COUNT 6.8 10*3/uL (4.8-10.8)
[2020-06-28 06:29] LABS: CREATININE 1.57 mg/dL (0.55-1.02); POTASSIUM 3.7 mmol/L (3.5-5.1)
[2020-06-28 08:00] VITALS: BP 161/79
--- NOTE | 2020-06-28 08:02 | NUR ---
PHYSICAL THERAPY Screen received pt admitted with c/o nausea abdominal pain and possible UTI, please consult PT if pt has a decline in functional status below baseline thank you Vani Meraz PT
[2020-06-28] MEDS ORDERED: CEFUROXIME AXE250 MG PO (08:59)
--- NOTE | 2020-06-28 12:29 | NUR ---
Discharge instructions reviewed with patient/family. Patient receptive and verbalizes understanding. Follow-up care arranged. Written instructions given to patient/family. PATIENT HAS LEFT THE FLOOR BY WHEELCHAIR. SYL MALDONADO
== END 2020-06-28 12:29 | disposition home or self-care (01) | DRG 690 ==
LOC: ED 20:27 → 4E 23:03 → EDHOLD 23:03 → 4E 23:52
PROVIDERS: Internal Medicine; ADMIT Internal Medicine; ATTEND Internal Medicine
DX: N30.01 Acute cystitis with hematuria (principal); I48.21 Permanent atrial fibrillation; E87.2 Acidosis; D68.51 Activated protein C resistance; D68.59 Other primary thrombophilia; Z68.42 Body mass index [BMI] 45.0-49.9, adult; R62.7 Adult failure to thrive; F78 Other intellectual disabilities; I12.9 Hypertensive chronic kidney disease with stage 1 through stage 4 chronic kidney disease, or unspecified chronic kidney disease; Z79.01 Long term (current) use of anticoagulants; Z86.718 Personal history of other venous thrombosis and embolism; F41.1 Generalized anxiety disorder; Z88.0 Allergy status to penicillin; N18.9 Chronic kidney disease, unspecified

== ENCOUNTER → 2020-07-05 | Outpatient (CLI) | payer OTHER ==
[~2020-07-05] MED LIST changes: +ATORVASTATIN CA40 M1 PO; +BUSPIRONE HCL10 MG PO; +FUROSEMIDE20 M1 PO; +JANTOVEN6 M1 PO; +LEVOTHYROXINE75 MCG PO; +PAROXETINE HCL30 MG PO
[2020-07-05 10:02] LABS: BASO % 0.3 % (0.0-1.0); EOS # 0.2 10*3/uL (0.0-0.4); EOS % 2.5 % (1.0-4.0); HEMATOCRIT 35.5 % (37.0-47.0); LYMPH # 1.7 10*3/uL (1.3-4.4); LYMPH % 24.1 % (27.0-41.0); MEAN CELL VOLUME 87.4 fl (81.0-99.0); MEAN CORPUSCULAR HGB 25.4 pg (27.0-31.0); MEAN PLATELET VOLUME 12.4 fl (9.6-12.3); MONO # 0.3 10*3/uL (0.1-1.0); MONO % 4.8 % (3.0-9.0); NEUT # 4.7 10*3/uL (2.3-7.9); NEUT % 67.9 % (47.0-73.0); PLATELET COUNT AUTOMATED 220 10*3/uL (130-400); RED BLOOD COUNT 4.06 10*6/uL (4.10-5.10); WHITE BLOOD COUNT 6.9 10*3/uL (4.8-10.8)
[2020-07-05 10:19] LABS: CREATININE 1.68 mg/dL (0.55-1.02); FREE T4 0.94 ng/dl (0.76-1.46); POTASSIUM 3.8 mmol/L (3.5-5.1); TOTAL PROTEIN 7.5 gm/dL (6.4-8.2)
[2020-07-05 10:27] LABS: THYROID STIM HORMONE (HS) 3.5 uIU/ml (0.358-4.75)
[2020-07-05 11:08] LABS: VITAMIN D, 25-HYDROXY 33.6 ng/mL (30-100)
== END | disposition home or self-care (01) ==
LOC: LAB 09:33
PROVIDERS: ATTEND Internal Medicine
DX: I12.9 Hypertensive chronic kidney disease with stage 1 through stage 4 chronic kidney disease, or unspecified chronic kidney disease (principal); N18.30 Chronic kidney disease, stage 3 unspecified; E78.3 Hyperchylomicronemia; E55.9 Vitamin D deficiency, unspecified; D51.0 Vitamin B12 deficiency anemia due to intrinsic factor deficiency; Z00.00 Encounter for general adult medical examination without abnormal findings

== ENCOUNTER → 2021-03-14 | Outpatient (CLI) | payer OTHER ==
[2021-03-14 11:13] LABS: BASO % 0.4 % (0.0-1.0); EOS # 0.1 10*3/uL (0.0-0.4); EOS % 1.5 % (1.0-4.0); HEMATOCRIT 36.6 % (37.0-47.0); LYMPH # 1.6 10*3/uL (1.3-4.4); LYMPH % 19.7 % (27.0-41.0); MEAN CELL VOLUME 89.1 fl (81.0-99.0); MEAN CORPUSCULAR HGB 26.5 pg (27.0-31.0); MEAN CORPUSCULAR HGB CONC 29.8 g/dl (33.0-37.0); MEAN PLATELET VOLUME 10.9 fl (9.6-12.3); MONO # 0.5 10*3/uL (0.1-1.0); MONO % 6.3 % (3.0-9.0); NEUT # 5.8 10*3/uL (2.3-7.9); NEUT % 71.2 % (47.0-73.0); PLATELET COUNT AUTOMATED 185 10*3/uL (130-400); RED BLOOD COUNT 4.11 10*6/uL (4.10-5.10); RED CELL DISTRI WIDTH 16.5 % (0-14.5); WHITE BLOOD COUNT 8.1 10*3/uL (4.8-10.8)
[2021-03-14 11:46] LABS: ALBUMIN 3.1 gm/dl (3.1-4.5); CREATININE 1.73 mg/dL (0.55-1.02); FREE T4 0.87 ng/dl (0.76-1.46); TOTAL PROTEIN 7.8 gm/dL (6.4-8.2)
[2021-03-14 11:50] LABS: THYROID STIM HORMONE (HS) 5.35 uIU/ml (0.358-4.75)
[2021-03-14 11:53] LABS: VITAMIN D, 25-HYDROXY 29.3 ng/mL (30-100)
== END | disposition home or self-care (01) ==
LOC: LAB 10:57
PROVIDERS: ATTEND Internal Medicine
DX: I10 Essential (primary) hypertension (principal); E11.9 Type 2 diabetes mellitus without complications; E78.2 Mixed hyperlipidemia; D52.9 Folate deficiency anemia, unspecified; D51.9 Vitamin B12 deficiency anemia, unspecified; R70.0 Elevated erythrocyte sedimentation rate; R79.82 Elevated C-reactive protein (CRP); R74.8 Abnormal levels of other serum enzymes; R79.89 Other specified abnormal findings of blood chemistry; R53.81 Other malaise; E55.9 Vitamin D deficiency, unspecified; E03.9 Hypothyroidism, unspecified; Z13.0 Encounter for screening for diseases of the blood and blood-forming organs and certain disorders involving the immune mechanism; Z13.1 Encounter for screening for diabetes mellitus; Z13.21 Encounter for screening for nutritional disorder; Z13.220 Encounter for screening for lipoid disorders; Z00.01 Encounter for general adult medical examination with abnormal findings

== ENCOUNTER 2022-07-23 10:58 | Emergency (ER) | payer MEDICARE ==
[~2022-07-23] VITALS: Wt 113.4 kg
[~2022-07-23 10:58] MED LIST changes: +DITROPAN XL5 MG PO; +XARELTO10 MG PO
[2022-07-23] MEDS ORDERED: ACETAMINOPHEN650 M5 PO (12:08)
[2022-07-23] MEDS ORDERED: XARE15TA PO (12:08)
[2022-07-23] MEDS ORDERED: DALIRESP500 MC1 PO (12:13)
[2022-07-23] MEDS ORDERED: Lopressor25 MG PO (12:15)
[2022-07-23 12:29] LABS: BASO % 0.4 % (0.0-1.0); EOS # 0.2 10*3/uL (0.0-0.4); EOS % 1.7 % (1.0-4.0); HEMATOCRIT 38.5 % (37.0-47.0); LYMPH # 1.9 10*3/uL (1.3-4.4); LYMPH % 19.3 % (27.0-41.0); MEAN CELL VOLUME 97.2 fl (81.0-99.0); MEAN CORPUSCULAR HGB 29.5 pg (27.0-31.0); MEAN CORPUSCULAR HGB CONC 30.4 g/dl (33.0-37.0); MEAN PLATELET VOLUME 11.5 fl (9.6-12.3); MONO # 0.6 10*3/uL (0.1-1.0); MONO % 6.5 % (3.0-9.0); NEUT # 6.9 10*3/uL (2.3-7.9); NEUT % 71.6 % (47.0-73.0); PLATELET COUNT AUTOMATED 166 10*3/uL (130-400); RED BLOOD COUNT 3.96 10*6/uL (4.10-5.10); RED CELL DISTRI WIDTH 14.6 % (0-14.5); WHITE BLOOD COUNT 9.6 10*3/uL (4.8-10.8)
[2022-07-23 12:42] LABS: ACT PARTIAL THROMBO TIME 24.3 SECONDS (20.0-32.1)
[2022-07-23 12:45] LABS: CREATININE 1.45 mg/dL (0.55-1.02); POTASSIUM 4.6 mmol/L (3.5-5.1); TOTAL PROTEIN 7.5 gm/dL (6.4-8.2)
[2022-07-23 13:31] LABS: BILIRUBIN Negative (Negative); BLOOD Negative (Negative); CLARITY Cloudy (Clear); COLOR Yellow (Yellow); GLUCOSE Negative (Negative); KETONE Negative (Negative); LEUKO ESTERASE 2+ (Negative); NITRITE Positive (Negative); PH 6.5 (4.5-8.0); UROBILINOGEN 0.2 E.U./dl (0.0-1.0)
[2022-07-23 13:50] LABS: BACTERIA 3+; WBC 31-40 wbc/hpf (0-5)
[2022-07-23] MEDS ORDERED: PREDNISONE20 M1 PO (14:06)
[2022-07-23] MEDS ORDERED: LEVOFLOXACIN500 MG PO (14:06)
[2022-07-23] MEDS ORDERED: PROVENTIL HFA6.7 GM INH (14:06)
[2022-07-23] MEDS ORDERED: VENTOLIN 02.5 MG/3 M INH (14:06)
== END 2022-07-23 16:18 | disposition home or self-care (01) ==
LOC: ED 10:58
PROVIDERS: Physician Assistant
DX: J44.1 Chronic obstructive pulmonary disease with (acute) exacerbation (principal); N39.0 Urinary tract infection, site not specified; Z87.891 Personal history of nicotine dependence; Z88.0 Allergy status to penicillin; Z79.899 Other long term (current) drug therapy; Z98.51 Tubal ligation status

== ENCOUNTER → 2023-04-27 | Outpatient (CLI) | payer OTHER ==
[~2023-04-27] MED LIST changes: +ACETAMINOPHEN650 M5 PO; +DALIRESP500 MC1 PO; +LEVOFLOXACIN500 MG PO; +Lopressor25 MG PO; +PREDNISONE20 M1 PO; +PROVENTIL HFA6.7 GM INH; +VENTOLIN 02.5 MG/3 M INH; +XARE15TA PO
== END | disposition home or self-care (01) ==
LOC: RAD 01:34
PROVIDERS: ATTEND Internal Medicine
DX: M81.0 Age-related osteoporosis without current pathological fracture (principal); Z78.0 Asymptomatic menopausal state

== ENCOUNTER → 2023-05-17 | Outpatient (CLI) | payer OTHER | END | disposition home or self-care (01) | LOC: MAMMO 10:50 | PROVIDERS: ATTEND Internal Medicine | DX: Z12.31 Encounter for screening mammogram for malignant neoplasm of breast (principal); N63.21 Unspecified lump in the left breast, upper outer quadrant; N64.9 Disorder of breast, unspecified; N63.11 Unspecified lump in the right breast, upper outer quadrant ==

== ENCOUNTER → 2023-05-30 | Outpatient (CLI) | payer OTHER | END | disposition home or self-care (01) | LOC: MAMMO 13:30 | PROVIDERS: ATTEND Internal Medicine | DX: N60.01 Solitary cyst of right breast (principal); N60.02 Solitary cyst of left breast; R92.8 Other abnormal and inconclusive findings on diagnostic imaging of breast ==

== ENCOUNTER → 2023-11-19 | Outpatient (CLI) | payer MEDICARE ==
[2023-11-19 12:01] LABS: HEMATOCRIT 41.6 % (37.0-47.0); MANUAL DIFF REFLEX YES; MEAN CELL VOLUME 95.9 fl (81.0-99.0); MEAN CORPUSCULAR HGB 28.3 pg (27.0-31.0); MEAN CORPUSCULAR HGB CONC 29.6 g/dl (33.0-37.0); MEAN PLATELET VOLUME 13.5 fl (9.6-12.3); PLATELET COUNT AUTOMATED 140 10*3/uL (130-400); RED BLOOD COUNT 4.34 10*6/uL (4.10-5.10); RED CELL DISTRI WIDTH 14.5 % (0-14.5); WHITE BLOOD COUNT 7.9 10*3/uL (4.8-10.8)
[2023-11-19 12:23] LABS: PLATELET SUFFICIENCY NORMAL (NORMAL); POLYCHROMASIA SLIGHT; TARGET CELLS FEW; TOTAL CELLS COUNTED 100 #CELLS
[2023-11-19 12:24] LABS: OVALOCYTES FEW
[2023-11-19 12:28] LABS: FREE T4 1.05 ng/dl (0.89-1.76); POTASSIUM 4.6 mmol/L (3.4-5.1); TOTAL PROTEIN 7.5 gm/dL (6.0-8.0)
[2023-11-19 12:30] LABS: VITAMIN D, 25-HYDROXY 49.7 ng/mL (30-100)
== END | disposition home or self-care (01) ==
LOC: LAB 11:16
PROVIDERS: ATTEND Internal Medicine
DX: M17.0 Bilateral primary osteoarthritis of knee (principal); Z13.0 Encounter for screening for diseases of the blood and blood-forming organs and certain disorders involving the immune mechanism; Z13.1 Encounter for screening for diabetes mellitus; Z13.21 Encounter for screening for nutritional disorder; Z13.228 Encounter for screening for other metabolic disorders; Z13.220 Encounter for screening for lipoid disorders; Z13.29 Encounter for screening for other suspected endocrine disorder; Z13.89 Encounter for screening for other disorder; Z13.6 Encounter for screening for cardiovascular disorders; Z13.9 Encounter for screening, unspecified; I10 Essential (primary) hypertension; E11.65 Type 2 diabetes mellitus with hyperglycemia; E78.2 Mixed hyperlipidemia; M25.862 Other specified joint disorders, left knee; M25.861 Other specified joint disorders, right knee

== ENCOUNTER 2024-01-19 14:16 | Emergency (ER) | payer MEDICARE ==
[~2024-01-19] VITALS: Ht 170.1 cm; Wt 100.7 kg
[2024-01-19 14:48] LABS: BASO % 0.3 % (0.0-1.0); HEMATOCRIT 38.7 % (37.0-47.0); LYMPH # 0.8 10*3/uL (1.3-4.4); LYMPH % 10.4 % (27.0-41.0); MEAN CELL VOLUME 94.2 fl (81.0-99.0); MEAN CORPUSCULAR HGB CONC 30.7 g/dl (33.0-37.0); MEAN PLATELET VOLUME 12.3 fl (9.6-12.3); MONO # 0.8 10*3/uL (0.1-1.0); MONO % 10.1 % (3.0-9.0); NEUT # 5.9 10*3/uL (2.3-7.9); NEUT % 78.8 % (47.0-73.0); PLATELET COUNT AUTOMATED 125 10*3/uL (130-400); RED BLOOD COUNT 4.11 10*6/uL (4.10-5.10); RED CELL DISTRI WIDTH 14.1 % (0-14.5); WHITE BLOOD COUNT 7.4 10*3/uL (4.8-10.8)
[2024-01-19 15:14] LABS: POTASSIUM 4.2 mmol/L (3.4-5.1); TOTAL PROTEIN 7.4 gm/dL (6.0-8.0)
[2024-01-19] MEDS ORDERED: ONDANSETRON4 MG SL (15:36)
== END 2024-01-19 15:46 | disposition home or self-care (01) ==
LOC: ED 14:16
PROVIDERS: Internal Medicine
DX: B34.9 Viral infection, unspecified (principal); R11.2 Nausea with vomiting, unspecified; J44.9 Chronic obstructive pulmonary disease, unspecified; I10 Essential (primary) hypertension; K21.9 Gastro-esophageal reflux disease without esophagitis; Z86.718 Personal history of other venous thrombosis and embolism; Z88.0 Allergy status to penicillin; Z98.51 Tubal ligation status; Z95.5 Presence of coronary angioplasty implant and graft; Z98.890 Other specified postprocedural states

== ENCOUNTER 2024-04-16 00:15 | Inpatient (IN) | payer MEDICARE ==
[~2024-04-16] VITALS: Ht 162.6 cm; Wt 115.0 kg
[2024-04-16] VITALS (10 sets, daily range): BP systolic 118–170; BP diastolic 56–88
[~2024-04-16 00:15] MED LIST changes: +ONDANSETRON4 MG SL
[2024-04-16 02:13] LABS: BILIRUBIN Negative (Negative); BLOOD 3+ (Negative); CLARITY Cloudy (Clear); COLOR Orange (Yellow); GLUCOSE Negative (Negative); KETONE Negative (Negative); LEUKO ESTERASE 2+ (Negative); NITRITE Positive (Negative); PH 6.5 (4.5-8.0)
[2024-04-16 02:23] LABS: BASO % 0.2 % (0.0-1.0); EOS % 0.1 % (1.0-4.0); HEMATOCRIT 32.9 % (37.0-47.0); LYMPH # 1.5 10*3/uL (1.3-4.4); LYMPH % 9.1 % (27.0-41.0); MEAN CELL VOLUME 94.3 fl (81.0-99.0); MEAN CORPUSCULAR HGB 29.5 pg (27.0-31.0); MEAN CORPUSCULAR HGB CONC 31.3 g/dl (33.0-37.0); MEAN PLATELET VOLUME 11.4 fl (9.6-12.3); MONO % 5.8 % (3.0-9.0); NEUT # 13.9 10*3/uL (2.3-7.9); NEUT % 82.6 % (47.0-73.0); PLATELET COUNT AUTOMATED 150 10*3/uL (130-400); RED BLOOD COUNT 3.49 10*6/uL (4.10-5.10); RED CELL DISTRI WIDTH 13.8 % (0-14.5); WHITE BLOOD COUNT 16.8 10*3/uL (4.8-10.8)
[2024-04-16 02:43] LABS: BACTERIA 3+; RBC TNTC rbc/hpf (0-2); WBC TNTC wbc/hpf (0-5)
[2024-04-16 02:54] LABS: TOTAL PROTEIN 6.7 gm/dL (6.0-8.0)
[2024-04-16 03:14] LABS: BASOPHILS 1 % (0-1); PLATELET SUFFICIENCY NORMAL (NORMAL); TOTAL CELLS COUNTED 100 #CELLS
[2024-04-16] MEDS ORDERED: SODIUM CHLORIDE 0.9% 1,000 ML IV SCH ×2 (03:15→07:55)
[2024-04-16] MEDS ORDERED: Ceftriaxone Sodium 1 GM/10 ML SYR IV ONE (03:20)
[2024-04-16] MEDS ORDERED: ACETAMINOPHEN 325 MG TAB PO ONE (03:20)
[2024-04-16] MEDS ORDERED: Ondansetron Hydrochloride 4 MG TAB SL PRN (07:55)
[2024-04-16] MEDS ORDERED: busPIRone Hydrochloride 10 MG TAB PO SCH (07:59)
[2024-04-16] MEDS ORDERED: Albuterol Sulf/Ipratropium 3 ML VIAL NEB PRN (08:05)
[2024-04-16] MEDS ORDERED: DEXTROSE 10 % IN WATER 250 ML IV PRN (08:25)
[2024-04-16] MEDS ORDERED: methylPREDNISolone sod succ 40 MG VIAL IV SCH (10:00)
[2024-04-16] MEDS ORDERED: RIVAROXABAN 15 MG TAB PO SCH (10:00)
[2024-04-16] MEDS ORDERED: AZITHROMYCIN 250 ML IV SCH (10:00)
[2024-04-16] MEDS ORDERED: ROFLUMILAST 500 MCG TAB PO SCH (10:00)
[2024-04-16] MEDS ORDERED: Oxybutynin Chloride 5 MG TAB PO SCH (10:00)
[2024-04-16] MEDS ORDERED: Metoprolol Tartrate 25 MG TAB PO SCH (10:00)
[2024-04-16] MEDS ORDERED: INSULIN REGULAR, HUMAN 1 UNIT/0.01 ML SC SCH (11:30)
[2024-04-16] MEDS ORDERED: PERFLUTREN PROTEIN-A MICROSPHR 3 ML VIAL IV ONE (14:42)
[2024-04-16] MEDS ORDERED: Piperacillin Sodium/Tazobact 50 ML IV SCH (22:00)
[2024-04-16] MEDS ORDERED: ATORVASTATIN CALCIUM 40 MG TABLET PO SCH (22:00)
[2024-04-17] VITALS: BP 131/56
[2024-04-17 04:00] VITALS: BP 152/88
[2024-04-17] MEDS ORDERED: Levothyroxine Sodium 100 MCG TAB PO SCH (06:00)
[2024-04-17] MEDS ORDERED: Ceftriaxone Sodium 1 GM in SYRINGE INFUSION 10 ML IV SCH (06:00)
[2024-04-17 06:53] LABS: HEMATOCRIT 32.6 % (37.0-47.0); MEAN CELL VOLUME 95.3 fl (81.0-99.0); MEAN CORPUSCULAR HGB 29.2 pg (27.0-31.0); MEAN CORPUSCULAR HGB CONC 30.7 g/dl (33.0-37.0); MEAN PLATELET VOLUME 12.1 fl (9.6-12.3); PLATELET COUNT AUTOMATED 144 10*3/uL (130-400); RED BLOOD COUNT 3.42 10*6/uL (4.10-5.10); RED CELL DISTRI WIDTH 13.9 % (0-14.5); WHITE BLOOD COUNT 18.4 10*3/uL (4.8-10.8)
[2024-04-17 06:55] LABS: MANUAL DIFF REFLEX YES
[2024-04-17 07:17] LABS: BURR CELLS FEW; POLYCHROMASIA SLIGHT; TOTAL CELLS COUNTED 100 #CELLS; TOXIC GRANULATION SLIGHT; VACUOLATION OF NEUTROPHILS SLIGHT
[2024-04-17 07:18] LABS: PLATELET SUFFICIENCY NORMAL (NORMAL); ROULEAUX SLIGHT
[2024-04-17 07:21] LABS: POTASSIUM 4.4 mmol/L (3.4-5.1)
[2024-04-17 08:00] VITALS: BP 135/65
[2024-04-17] MEDS ORDERED: LEVOFLOXACIN 100 ML IV SCH (10:00)
[2024-04-17 12:00] VITALS: BP 130/69; BP 135/65
[2024-04-17 16:00] VITALS: BP 130/71
[2024-04-17 20:00] VITALS: BP 151/72
[2024-04-18] VITALS: BP 155/76
[2024-04-18 08:00] VITALS: BP 152/67
[2024-04-18 12:00] VITALS: BP 137/63
[2024-04-18 16:00] VITALS: BP 152/67
[2024-04-18 20:00] VITALS: BP 171/93
[2024-04-19] VITALS: BP 143/65
[2024-04-19 04:28] LABS: BASO # 0.1 10*3/uL (0.0-0.1); BASO % 0.4 % (0.0-1.0); EOS % 0.3 % (1.0-4.0); LYMPH # 1.2 10*3/uL (1.3-4.4); LYMPH % 10.9 % (27.0-41.0); MEAN CELL VOLUME 97.4 fl (81.0-99.0); MEAN CORPUSCULAR HGB 29.2 pg (27.0-31.0); MEAN PLATELET VOLUME 11.9 fl (9.6-12.3); MONO # 0.7 10*3/uL (0.1-1.0); MONO % 5.9 % (3.0-9.0); NEUT # 9.2 10*3/uL (2.3-7.9); NEUT % 80.5 % (47.0-73.0); PLATELET COUNT AUTOMATED 162 10*3/uL (130-400); RED CELL DISTRI WIDTH 14.1 % (0-14.5); WHITE BLOOD COUNT 11.4 10*3/uL (4.8-10.8)
[2024-04-19 04:48] LABS: POTASSIUM 4.1 mmol/L (3.4-5.1)
[2024-04-19 08:00] VITALS: BP 150/72
[2024-04-19 12:00] VITALS: BP 158/71
[2024-04-19 16:00] VITALS: BP 146/51
[2024-04-19 20:00] VITALS: BP 142/60
[2024-04-20] VITALS: BP 152/58; BP 152/88
[2024-04-20 08:00] VITALS: BP 157/80
[2024-04-20 12:00] VITALS: BP 160/76
[2024-04-20 16:00] VITALS: BP 170/80
[2024-04-20 20:00] VITALS: BP 152/71
[2024-04-21] VITALS: BP 154/84; BP 161/93
[2024-04-21 04:14] LABS: BASO % 0.3 % (0.0-1.0); EOS # 0.1 10*3/uL (0.0-0.4); HEMATOCRIT 35.5 % (37.0-47.0); LYMPH # 1.5 10*3/uL (1.3-4.4); MEAN CORPUSCULAR HGB 29.2 pg (27.0-31.0); MEAN CORPUSCULAR HGB CONC 31.3 g/dl (33.0-37.0); MEAN PLATELET VOLUME 11.5 fl (9.6-12.3); MONO # 0.6 10*3/uL (0.1-1.0); NEUT # 11.4 10*3/uL (2.3-7.9); NEUT % 82.1 % (47.0-73.0); PLATELET COUNT AUTOMATED 171 10*3/uL (130-400); RED CELL DISTRI WIDTH 13.9 % (0-14.5); WHITE BLOOD COUNT 13.9 10*3/uL (4.8-10.8)
[2024-04-21 04:18] LABS: MEAN CELL VOLUME 93.4 fl (81.0-99.0)
[2024-04-21 04:35] LABS: POTASSIUM 3.9 mmol/L (3.4-5.1)
[2024-04-21 08:00] VITALS: BP 161/80
[2024-04-21 12:00] VITALS: BP 156/67
[2024-04-21 16:00] VITALS: BP 166/58
[2024-04-21 20:00] VITALS: BP 150/57
[2024-04-22] VITALS: BP 142/56
[2024-04-22 04:17] LABS: BASO % 0.3 % (0.0-1.0); EOS # 0.3 10*3/uL (0.0-0.4); HEMATOCRIT 34.3 % (37.0-47.0); LYMPH # 1.5 10*3/uL (1.3-4.4); MEAN CELL VOLUME 95.3 fl (81.0-99.0); MEAN CORPUSCULAR HGB 29.2 pg (27.0-31.0); MEAN CORPUSCULAR HGB CONC 30.6 g/dl (33.0-37.0); MEAN PLATELET VOLUME 11.4 fl (9.6-12.3); MONO # 0.6 10*3/uL (0.1-1.0); MONO % 3.9 % (3.0-9.0); NEUT % 82.8 % (47.0-73.0); PLATELET COUNT AUTOMATED 173 10*3/uL (130-400); RED CELL DISTRI WIDTH 13.5 % (0-14.5); WHITE BLOOD COUNT 14.5 10*3/uL (4.8-10.8)
[2024-04-22 04:38] LABS: POTASSIUM 3.6 mmol/L (3.4-5.1)
[2024-04-22 08:00] VITALS: BP 156/69
[2024-04-22] MEDS ORDERED: SEPTDS PO (09:34)
[2024-04-22 12:00] VITALS: BP 155/79
== END 2024-04-22 12:45 | disposition home health service (06) | DRG 871 ==
LOC: ED 00:15 → EDHOLD 03:34 → 4E 03:34 → EDHOLD 07:59 → 4E 22:09
PROVIDERS: Emergency Medicine; Internal Medicine; ADMIT Internal Medicine; ATTEND Internal Medicine
DX: A41.51 Sepsis due to Escherichia coli [E. coli] (principal); E43 Unspecified severe protein-calorie malnutrition; G93.41 Metabolic encephalopathy; N17.0 Acute kidney failure with tubular necrosis; J96.01 Acute respiratory failure with hypoxia; J18.9 Pneumonia, unspecified organism; N39.0 Urinary tract infection, site not specified; Z68.41 Body mass index [BMI] 40.0-44.9, adult; I12.0 Hypertensive chronic kidney disease with stage 5 chronic kidney disease or end stage renal disease; F33.1 Major depressive disorder, recurrent, moderate; D68.59 Other primary thrombophilia; Z16.39 Resistance to other specified antimicrobial drug; R31.9 Hematuria, unspecified; E78.2 Mixed hyperlipidemia; E11.22 Type 2 diabetes mellitus with diabetic chronic kidney disease; B96.89 Other specified bacterial agents as the cause of diseases classified elsewhere; E03.9 Hypothyroidism, unspecified; F41.1 Generalized anxiety disorder; I25.10 Atherosclerotic heart disease of native coronary artery without angina pectoris; R62.7 Adult failure to thrive; E66.01 Morbid (severe) obesity due to excess calories; Z86.718 Personal history of other venous thrombosis and embolism; Z79.899 Other long term (current) drug therapy; Z86.16 Personal history of COVID-19; Z79.01 Long term (current) use of anticoagulants; Z79.2 Long term (current) use of antibiotics; Z88.0 Allergy status to penicillin; Z83.3 Family history of diabetes mellitus; Z82.49 Family history of ischemic heart disease and other diseases of the circulatory system

== ENCOUNTER → 2024-11-27 | Outpatient (CLI) | payer MEDICARE, MEDICAID ==
[~2024-11-27] MED LIST changes: +SEPTDS PO
[2024-11-27 10:22] LABS: BASO % 0.4 % (0.0-1.0); EOS # 0.2 10*3/uL (0.0-0.4); EOS % 2.6 % (1.0-4.0); HEMATOCRIT 41.2 % (37.0-47.0); MEAN CELL VOLUME 94.7 fl (81.0-99.0); MEAN CORPUSCULAR HGB 29.2 pg (27.0-31.0); MEAN CORPUSCULAR HGB CONC 30.8 g/dl (33.0-37.0); MEAN PLATELET VOLUME 12.7 fl (9.6-12.3); MONO # 0.4 10*3/uL (0.1-1.0); MONO % 5.8 % (3.0-9.0); NEUT # 4.7 10*3/uL (2.3-7.9); NEUT % 64.7 % (47.0-73.0); PLATELET COUNT AUTOMATED 145 10*3/uL (130-400); RED BLOOD COUNT 4.35 10*6/uL (4.10-5.10); RED CELL DISTRI WIDTH 13.9 % (0-14.5); WHITE BLOOD COUNT 7.3 10*3/uL (4.8-10.8)
[2024-11-27 11:11] LABS: FREE T4 1.35 ng/dl (0.89-1.76); POTASSIUM 4.4 mmol/L (3.4-5.1); TOTAL PROTEIN 7.4 gm/dL (6.0-8.0)
[2024-11-27 11:23] LABS: VITAMIN D, 25-HYDROXY 69.8 ng/mL (30-100)
== END | disposition home or self-care (01) ==
LOC: LAB 09:45
PROVIDERS: ATTEND Internal Medicine
DX: I12.9 Hypertensive chronic kidney disease with stage 1 through stage 4 chronic kidney disease, or unspecified chronic kidney disease (principal); E11.22 Type 2 diabetes mellitus with diabetic chronic kidney disease; N18.30 Chronic kidney disease, stage 3 unspecified; D68.51 Activated protein C resistance; D51.0 Vitamin B12 deficiency anemia due to intrinsic factor deficiency; E11.65 Type 2 diabetes mellitus with hyperglycemia; E78.2 Mixed hyperlipidemia; I89.0 Lymphedema, not elsewhere classified; E03.9 Hypothyroidism, unspecified; R53.83 Other fatigue; E55.9 Vitamin D deficiency, unspecified; Z79.01 Long term (current) use of anticoagulants

== ENCOUNTER → 2024-12-12 | Outpatient (CLI) | payer MEDICARE, MEDICAID | END | disposition home or self-care (01) | LOC: US 00:10 | PROVIDERS: ATTEND Internal Medicine | DX: N20.0 Calculus of kidney (principal); R79.89 Other specified abnormal findings of blood chemistry ==

== ENCOUNTER → 2024-12-22 | Outpatient (CLI) | payer MEDICARE, MEDICAID | END | disposition home or self-care (01) | LOC: MAMMO 03:21 | PROVIDERS: ATTEND Internal Medicine | DX: Z12.31 Encounter for screening mammogram for malignant neoplasm of breast (principal); N63.25 Unspecified lump in the left breast, overlapping quadrants; R92.313 Mammographic fatty tissue density, bilateral breasts ==